=== PATIENT | female | born 1970 | race Two or more races ===

== ENCOUNTER → 2025-07-05 | Outpatient (CLI) | payer MEDICAID, SELFPAY ==
--- NOTE | 2025-07-05 16:30 | XR_ITS ---
Examination: CT chest without intravenous contrast 2-D reconstructions Date and time of exam:July 05, 2025, 1622 hours INDICATIONS: Smoking history 30 years CTDI:vol (mGy) 11.1 DLP: (mGycm) 409 Technique: Multiple axial sections of the thorax have been obtained. 3 mm slice thickness, from the hemidiaphragms to above the apices of the lungs. Mediastinal and lung density settings have been obtained. Noncontrast images have also been obtained. 2-D sagittal coronal images obtained. Low dose protocols were performed. One or more of the following dose reduction techniques were used; automated exposure control, adjustment of the mA and/or KV according to patient size, use of iterative reconstruction technique. Findings: No thoracic aortic aneurysmal dilatation or pulmonary artery enlargement. No paratracheal tracheobronchial or bronchopulmonary adenopathy. No pneumonia, pulmonary edema, pleural disease 2 mm pulmonary nodule right lower lobe image 167 No visualized liver or splenic lesion No pancreatic mass Contracted gallbladder IMPRESSION: 2 mm pulmonary nodule right lower lobe, with this study is baseline recommend 6 month follow-up CT chest without contrast
== END | disposition home or self-care (01) ==
PROVIDERS: PCP Physician Assistant; Referring Provider Physician Assistant; Visit Provider Physician Assistant
DX: Z12.2 Encounter for screening for malignant neoplasm of respiratory organs (principal); R91.1 Solitary pulmonary nodule
CPT/HCPCS: 71271

== ENCOUNTER 2025-08-28 19:40 | Emergency (ER) | payer MEDICAID, SELFPAY ==
[2025-08-28 19:41] VITALS: BMI 30.2
[2025-08-28 20:21] VITALS: BP 113/81; PULSE 88; RESP 18; TEMP 36.4; O2SAT 96
--- NOTE | 2025-08-28 20:38 | EDNOTE_ITS ---
Nausea/Vomit./Diarrhea-RME/HPI General Chief complaint: Fever Stated complaint: FEVER/ BODYACHES AND VOMITING X 3DAYS Time Seen by Provider: 08/28/25 20:03 Source: patient, RN notes reviewed and old records reviewed Arrival date/time: 08/28/25 19:40 Mode of arrival: ambulatory Limitations: no limitations RME / HPI RME / HPI Narrative: 54yof presents to ED for 2-3-day history of nausea, vomiting and diarrhea. Grandson currently has similar symptoms. Denies suspected food poisoning or recent foreign travel. Patient c/o mild headache and generalized body aches. Reports subjective fever. No abdominal pain, urinary symptoms or dizziness reported. 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 Previous Rx's ?Medication ?Instructions ?Recorded hydrocodone 5 mg-acetaminophen 325 1 tab PO QID PRN pa in #14 tabs 11/07/18 mg tablet ([place]amo) naproxen 500 mg tablet 500 mg PO BID PRN pain #30 t abs 12/08/23 acetaminophen 500 mg tablet 1,000 mg (2 x 500 mg) PO Q 6H PRN 08/28/25 (Tylenol Extra Strength) fever or pain #30 tabs ondansetron 4 mg disintegrating 4 mg PO Q6H PRN nausea and 08/28/25 tablet vomiting #10 tabs Allergies Allergy/AdvReac Type Severity Reaction Status Date / Time No Known Allergies Allergy Verified 11/07/18 16:18 Review of Systems Review of Systems Systems Reviewed: All systems reviewed, normal except as documented Constitutional Constitutional: Reports body ache(s), Reports fever(s) (subjective) and Reports headache(s) ENT Ears, Nose, Mouth, and Throat: Denies dizziness and Reports headache(s) Gastrointestinal Gastrointestinal: Denies abdominal pain, Reports loose stools, Reports nausea and Reports vomiting Musculoskeletal Musculoskeletal: Reports myalgias Neurologic Neurologic: Denies dizziness and Reports headache(s) Past Medical History Past Medical History GASTROINTESTINAL: Positive Obesity Surgical History OTHER SURGICAL HX: denies pshx Social History SMOKING STATUS: Current some day smoker SUBSTANCE USE: does not use ALCOHOL: Never ED Exam General Limitations: Present no limitations General appearance: Present alert and in no apparent distress Head Head exam: Present atraumatic and normocephalic Eye Eye exam: Present normal appearance, PERRL and EOMI ENT ENT exam: Present mucous membranes dry (mild) Neck Neck exam: Present normal inspection and full ROM Chest Chest inspection: Present normal inspection and symmetric chest wall rise Respiratory Respiratory exam: Present normal lung sounds bilaterally; Absent respiratory distress Cardiovascular Cardiovascular exam: Present regular rate and normal rhythm Abdominal Exam Abdominal exam: Present soft; Absent distention, tenderness, guarding or rebound Extremities Exam Extremities exam: Present normal inspection and full ROM Back Exam Back exam: Absent CVA tenderness (R) or CVA tenderness (L) Neurological Exam Neurological exam: Present alert and oriented X3 Psychiatric Psychiatric exam: Present normal affect and normal mood Skin Skin exam: Present warm, dry, intact and normal color Course Quality Measures none Orders Category Date Time Status Bedside COVID-19 Antigen Test NOW Care 08/28/25 20:37 Completed CBC Stat Lab 08/28/25 21:18 Completed CMP [Comprehensive Metabolic Panel] Stat Lab 08/28/25 21:18 Completed Lipase Stat Lab 08/28/25 21:18 Completed UA [Urinalysis] Stat Lab 08/28/25 23:12 Completed Acetaminophen Tab [Tylenol ES Tab] Med 08/28/25 22:36 Discontinued 1,000 mg PO X1 ONE Ketorolac Inj [Toradol Inj] Med 08/28/25 21:17 Discontinued 30 mg IVP X1 ONE Metoclopramide Inj [Reglan Inj] Med 08/28/25 22:40 Discontinued 10 mg IVP X1 ONE Ondansetron Inj [Zofran Inj] Med 08/28/25 21:17 Discontinued 4 mg IVP X1 ONE Ondansetron Odt [Zofran Odt] Med 08/28/25 20:37 Discontinued 4 mg PO X1 ONE Ringers Lactated 1000 ml [Lactated Ringers] 1,000 ml Med 08/28/25 22:40 Discontinued IV 999 mls/hr Sodium Chloride 0.9% 1000 ml [Ns] 1,000 ml Med 08/28/25 20:38 Discontinued IV 999 mls/hr Vital Signs Vital signs: Vital Signs Temperature 97.6 F 08/28/25 20:21 Pulse Rate 88 08/28/25 20:21 Respiratory Rate 18 08/28/25 20:21 Blood Pressure 113/81 08/28/25 20:21 Pulse Oximetry (%) 96 08/28/25 20:21 Oxygen Delivery Method Room Air 08/28/25 20:21 Nausea/Vomiting/Diarrhea MDM Narrative MDM Narrative:: 54yof presents to ED for 2-3-day history of nausea, vomiting and diarrhea. Grandson currently has similar symptoms. Denies suspected food poisoning or recent foreign travel. Patient c/o mild headache and generalized body aches. Reports subjective fever. No abdominal pain, urinary symptoms or dizziness reported. 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 ED workup reassuring. Suspect viral etiology of symptoms. Encouraged rest, fluids, symptomatic treatment, fever management prn. Stable for discharge, RTED precautions given. Patient data External records reviewed:: [facility] previous records (12/08/2023 ED visit for ankle sprain) Clinical information provided by:: patient Social determinants that could affect healthcare access:: none Patient has the following chronic illnesses:: None How is presenting disease/condition affected by chronic disease/condition?: no chronic disease Evaluation data The following diagnostics were reviewed and interpreted by me:: lab results Lab and/or radiology exams considered but not ordered:: CT abdomen/pelvis: Abdomen is soft, non tender Interpretation Summary: No leukocytosis No anemia No GLADIS Negative covid Medications / Prescriptions Medications / Prescriptions considered but not ordered:: No antibiotics or antivirals recommended at this time Medication administrations:: Medication Administration History Discontinued Medications Acetaminophen (Acetaminophen 500 Mg Tablet) 1,000 mg PO X1 ONE Stop: 08/28/25 22:37 Last Admin: 08/28/25 23:07 Dose: 1,000 mg Documented By: AM Sodium Chloride (Ns) 1,000 mls @ 999 mls/hr IV .Q1H1M ONE Stop: 08/28/25 21:38 Last Infusion: 08/28/25 22:40 Dose: Infused Documented By: Admin: 08/28/25 21:22 Dose: 999 mls/hr Documented By: EE Lactated Ringer's (Lactated Ringers) 1,000 mls @ 999 mls/hr IV .Q1H1M ONE Stop: 08/28/25 23:40 Last Infusion: 08/29/25 00:22 Dose: Infused Documented By: Admin: 08/28/25 23:07 Dose: 999 mls/hr Documented By: AM Ketorolac Tromethamine (Ketorolac Inj 30 Mg/Ml Vial) 30 mg IVP X1 ONE Stop: 08/28/25 21:18 Last Admin: 08/28/25 21:42 Dose: 30 mg Documented By: AM Metoclopramide HCl (Metoclopramide Inj 5 Mg/Ml Vial 2 Ml) 10 mg IVP X1 ONE; Protocol Stop: 08/28/25 22:41 Last Admin: 08/28/25 23:08 Dose: 10 mg Documented By: AM Ondansetron HCl (Ondansetron Odt 4 Mg Tabrap) 4 mg PO X1 ONE; Protocol Stop: 08/28/25 20:38 Last Admin: 08/28/25 21:24 Dose: Not Given Documented By: EE Non-Admin Reason: Cancelled by Provider Ondansetron HCl (Ondansetron Inj 2 Mg/Ml Inj 2 Ml) 4 mg IVP X1 ONE; Protocol Stop: 08/28/25 21:18 Last Admin: 08/28/25 21:41 Dose: 4 mg Documented By: AM Above medications administered in ED Consultations Consultation(s) initiated? (list below): No Diagnosis Nausea Differential Diagnosis: other (Food poisoning, gastroenteritis, dehydration, electrolyte imbalance, COVID, flu, viral illness) Most likely diagnosis given after review of the tests above:: Gastroenteritis, viral illness Admission Indicated Admission indicated?: not indicated Admission Request Was there a request for admission?: No Disposition Plan Disposition Plan: Discharge Discharge Attestation Discharge Attestation: The patient and all family members were given an opportunity to ask questions and understood the discharge instructions. Discharge instructions specifically effects, indications for sooner follow up or return to the emergency department, and the expected course of current diagnosis. Patient condition: Stable Discharge Plan Plan Patient Disposition: HOME (Self Care) Patient condition on transfer: Stable Prescriptions/Referrals Prescriptions/Med Rec: New ondansetron 4 mg tablet,disintegrating 4 mg PO Q6H PRN (Reason: nausea and vomiting) Qty: 10 0RF acetaminophen [Tylenol Extra Strength] 500 mg tablet 1,000 mg PO Q6H PRN (Reason: fever or pain) Qty: 30 0RF No Action hydrocodone-acetaminophen [[place]amo] 5-325 mg tablet 1 tab PO QID MDD 3 PRN (Reason: pain) Qty: 14 0RF naproxen 500 mg tablet 500 mg PO BID PRN (Reason: pain) Qty: 30 0RF Referrals: Temporary Provider,ED [Physician, Emergency Medicine] - In 1 week Problem List Clinical Impression: Viral gastroenteritis Patient/Caregiver Discharge Instructions Education Materials: ED Gastroenteritis, Viral (Adult) Additional Instructions: Make sure to get plenty of rest, get plenty of fluids. Ibuprofen and Tylenol can be taken as needed for fever or pain. Print Language: Nepalese Stand Alone Forms: Genie Award Info., Patient Portal Info Letter PA/LIFE SCIENCES DIRECTOR Supervising Physician PA/LIFE SCIENCES DIRECTOR Supervising Physician: Hellen
[2025-08-28] MEDS: SODIUM CHLORIDE 0.9% 1000 ML 1,000 ML 999 ML IV (21:22)
[2025-08-28 21:38] LABS: Basophils # (Auto) 0.1 Thou/mm3 (0.0-0.2); Basophils % (Auto) 1 % (0-2.5); Eosinophils # (Auto) 0.1 Thou/mm3 (0.0-0.5); Eosinophils % (Auto) 1 % (0-10); Hematocrit 46.3 % (36.0-46.0); Hemoglobin 15.8 g/dL (12.0-16.0); Immature Granulocytes Auto 0.02 Thou/mm3 (0.00-0.00); Lymphocytes # (Auto) 1.6 Thou/mm3 (1.0-4.8); Lymphocytes % (Auto) 22 % (10-50); Mean Corpuscular HGB Conc 34.1 g/dl (31.0-37.0); Mean Corpuscular Hemoglobin 30.2 pg (25.0-35.0); Mean Corpuscular Volume 88 fL (80-100); Monocytes # (Auto) 0.5 Thou/mm3 (0.0-0.8); Monocytes % (Auto) 7 % (0-12); Neutrophils # (Auto) 5.2 Thou/mm3 (1.8-7.7); Neutrophils % (Auto) 69 % (37-80); Nucleated Red Blood Cell # 0.00 Thou/mm3 (0.00-0.00); Nucleated Red Blood Cell % 0 /100 WBC (0); Platelet Count 329 Thou/mm3 (140-440); RDW Standard Deviation 43.3 fL (36.4-46.3); Red Blood Count 5.24 Miln/mm3 (4.00-5.20); White Blood Count 7.5 Thou/mm3 (3.6-11.0)
[2025-08-28] MEDS: ONDANSETRON INJ 2 MG/ML INJ 2 ML 4 MG IVP (21:41)
[2025-08-28] MEDS: KETOROLAC INJ 30 MG/ML VIAL IVP (21:42)
[2025-08-28 22:09] LABS: Alanine Aminotransferase 13 U/L (10-49); Albumin, Serum 4.8 gm/dL (3.5-5.0); Albumin/Globulin Ratio 1.7 (1.2-2.2); Alkaline Phosphatase 73 U/L (46-116); Anion Gap 9 (7-16); Aspartate Amino Transferase 21 U/L (0-34); BUN/Creatinine Ratio 8 Ratio (12-20); Bilirubin,Total 0.3 mg/dL (0.3-1.2); Blood Urea Nitrogen 6 mg/dL (9-23); Calcium 9.8 mg/dL (8.3-10.6); Calcium (Corrected) 9.8 mg/dL (8.5-10.1); Carbon Dioxide 25.5 mMol/L (20.0-31.0); Chloride 105 mMol/L (98-107); Creatinine (Component) 0.8 mg/dL (0.6-1.3); Estimated Creatinine Clearance 74.1 mL/min (>60); Globulin 2.9 gm/dL (2.3-3.5); Glucose 125 mg/dL (74-106); Lipase 35 U/L (12-53); Osmolality,Calculated 276 (275-295); Potassium 4.0 mMol/L (3.4-5.1); Sodium 139 mMol/L (136-145); Total Protein 7.7 gm/dL (5.7-8.2); eGFR > 60 See Note
[2025-08-28] MEDS: RINGERS LACTATED 1000 ML 1,000 ML 999 ML IV (23:07)
[2025-08-28] MEDS: ACETAMINOPHEN 500 MG TABLET 1000 MG PO (23:07)
[2025-08-28] MEDS: METOCLOPRAMIDE INJ 5 MG/ML VIAL 2 ML 10 MG IVP (23:08)
[2025-08-28 23:22] LABS: Collection Type, Urine Clean Catch
[2025-08-28 23:26] LABS: Amorphous Crystals,Urine Present (Absent); Bacteria,Urine Rare; Bilirubin,Urine Negative (Negative); Blood,Urine Negative (Negative); Clarity,Urine Clear (Clear/Hazy); Color,Urine Yellow (Lt Yel-Yel); Glucose, Urine Negative (Negative); Hyaline Casts,Urine < 1 /hpf (0-1); Ketones,Urine Trace (Negative); Leukocyte Esterase,Urine Positive (Negative); Nitrite,Urine Negative (Negative); PH,Urine 7.0 (5.0-7.0); Protein,Urine Trace (Neg - Trace); RBC,Urine 4 /hpf (0-3); Specific Gravity,Urine 1.019 (1.001-1.035); Squamous Epithelial Cell,Urine 4 /hpf (0-5); Urobilinogen,Urine Negative mg/dL (0.0-1.0); WBC,Urine 3 /hpf (0-5)
== END 2025-08-29 00:24 | disposition home or self-care (01) ==
PROVIDERS: Physician Assistant; Emergency Provider Emergency Medicine
DX: A08.4 Viral intestinal infection, unspecified (principal)
CPT/HCPCS: 36415; 80053; 81001; 83690; 85025; 87502; 87635; 96361; 96374; 96375; 99283; J1885; J2405; J2765; J7030; J7120; A9270